=== PATIENT | female | born 1955 | race Caucasian/White ===

== ENCOUNTER 2022-01-30 16:59 | Emergency (ER) | payer MEDICARE ==
[~2022-01-30] VITALS: Ht 172.7 cm; Wt 50.8 kg
--- OUTSIDE RECORDS SUMMARY | 2022-01-30 17:02 | XMS ---
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 Chloe has no Care Guidelines for this patient. Ross[place] VISIT COUNT (12 MO.) [address] [facility] T[facility] NOTE: Visits indicate total known visits. ED/C VISIT TRACKING (12 MO.) 01/30/2022 16:59 [facility] [place] TYPE: Emergency COMPLAINT: - POST OP PROBLEM 01/30/2022 15:01 [facility] DIAGNOSES: - Hip Pain INPATIENT VISIT TRACKING (12 MO.) 01/05/2022 15:11 [facility] TequilaRaymond GUERRERO TYPE: Surgical Services DIAGNOSES: - Unspecified dislocation of left hip, initial encounter [email or web address]
[2022-01-30] MEDS ORDERED: CLONAZEPAM0.5 MG PO (17:16)
[2022-01-30] MEDS ORDERED: VENTOLIN HFA18 GM INH (17:17)
[2022-01-30] MEDS ORDERED: LISINOPRIL40 MG PO (17:17)
[2022-01-30] MEDS ORDERED: TRAMADOL HCL50 MG PO (17:17)
[2022-01-30] MEDS ORDERED: HYDROCODON-ACE1 EAC8 PO ×2 (17:17→19:13)
[2022-01-30] MEDS ORDERED: FLUTICASONE-SA1 EAC4 INH (17:18)
[2022-01-30] MEDS ORDERED: GABAPENTIN600 MG PO (17:18)
== END 2022-01-30 19:40 | disposition home or self-care (01) ==
LOC: ED 16:59
DX: T84.021A Dislocation of internal left hip prosthesis, initial encounter (principal); Z88.0 Allergy status to penicillin; Z88.5 Allergy status to narcotic agent; Z79.899 Other long term (current) drug therapy; Z79.51 Long term (current) use of inhaled steroids
CPT/HCPCS: 27265; 72100; 72170; 73502; 99283-25; A9270; J1885; J2704; J3010

== ENCOUNTER 2022-02-26 15:22 | Emergency (ER) | payer MEDICARE, OTHER ==
[~2022-02-26] VITALS: Ht 172.7 cm; Wt 49.0 kg
[~2022-02-26 15:22] MED LIST: CLONAZEPAM0.5 MG PO; FLUTICASONE-SA1 EAC4 INH; GABAPENTIN600 MG PO; HYDROCODON-ACE1 EAC8 PO; LISINOPRIL40 MG PO; TRAMADOL HCL50 MG PO; VENTOLIN HFA18 GM INH
--- OUTSIDE RECORDS SUMMARY | 2022-02-26 17:00 | XMS ---
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 Chloe has no Care Guidelines for this patient. [place] VISIT COUNT (12 MO.) [address] [facility] T[facility] NOTE: Visits indicate total known visits. 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
== END 2022-02-26 18:45 | disposition home or self-care (01) ==
LOC: ED 15:22
DX: M24.452 Recurrent dislocation, left hip (principal); Z88.0 Allergy status to penicillin; Z88.5 Allergy status to narcotic agent; Z79.899 Other long term (current) drug therapy; Z79.51 Long term (current) use of inhaled steroids
CPT/HCPCS: 27265; 72170; 99152; 99283-25; A9270; J2704; J3010